=== PATIENT | female | born 1990 | race Caucasian/White ===

== ENCOUNTER 2023-01-12 00:32 | Emergency (ER) | payer BC, OTHER, SELFPAY ==
--- NOTE | ~2023-01-12 | CT_ITS ---
EXAMINATION: CTA chest PE abdomen pel DATE: 01/12/2023 02:18 INDICATION: Left-sided pleuritic chest pain and left abdominal pain. TECHNIQUE: Computed tomography (CT) pulmonary angiogram of the chest was performed with 100 mL Omnipa que-350 intravenous contrast. Additional 3D reconstructions utilizing coronal maximum intensity proje ction (MIP) were performed. CT of the abdomen and pelvis was performed with intravenous contrast util izing the same contrast bolus following a short delay. Automated exposure control and iterative recon struction technique were employed. The dose-length product was 1004.32 mGy-cm. COMPARISON: None FINDINGS: Chest: Excellent contrast opacification of the pulmonary arteries. No significant motion artifact yielding d iagnostic quality study which demonstrates no pulmonary embolism. No pneumonia, pulmonary edema, pleu ral effusion or pneumothorax. Heart size is normal. No pericardial effusion. Thoracic aorta is normal in caliber with no dissection. No pathologically enlarged thoracic lymphadenopathy. Small sliding-ty pe hiatal hernia. Bones are unremarkable. Abdomen/pelvis: Cholecystectomy clips the gallbladder fossa. Liver, spleen, pancreas, bilateral adrenal glands and ki dneys are normal. Normal retrocecal appendix. Mild ventral diastases with superimposed very small fat -containing umbilical hernia. No bowel obstruction. Bladder, uterus and right adnexa are unremarkable . Partially collapsed 1.7 cm partially collapsed left corpus luteum cyst with crenelated peripheral r im enhancement. No free intraperitoneal gas or fluid. No pathologically enlarged abdominal or pelvic lymphadenopathy. Vasculature is unremarkable with normal caliber abdominal aorta with no aneurysm or dissection. Mild lumbar spondylosis. IMPRESSION: 1. 1.7 cm partially collapsed left ovarian corpus luteum cyst. 2. No pulmonary embolism or other acute intrathoracic, abdominal or pelvic process. Reviewed, dictated and finalized at location A. TY ADMINISTRATOR IMPRESSION: 1. 1.7 cm partially collapsed left ovarian corpus luteum cyst. 2. No pulmonary embolism or other acute intrathoracic, abdominal or pelvic proc ess.
[2023-01-12 00:55] VITALS: BP 128/78; PULSE 88; RESP 16; TEMP 36.9; O2SAT 98
--- NOTE | 2023-01-12 01:16 | ED.GENADULT ---
HPI - General Adult General Chief complaint: Abdominal Pain Stated complaint: abd pain Time Seen by Provider: 01/12/23 00:43 History of Present Illness HPI narrative: Patient 32-year-old female who presents the emergency department with chief complaint of left-sided chest pain. Patient states that for about 2 weeks has been having pain in her left upper quadrant and left lower chest. The patient states the pain is sharp reports that its been getting worse and reports is worse with inspiration. Patient states that she was seen in an outside hospital that apparently is having technical issues tonight and they were only able to obtain blood work on the patient the patient at that time had a positive D-dimer and they were unable to get imaging test on the patient. The patient was transferred to our facility for CTA of the chest and possible abdomen pelvis CT. Patient denies fever does report that she has had some flulike symptoms as well. Related Data Allergies Allergy/AdvReac Type Severity Reaction Status Date / Time No Known Allergies Allergy Mild Verified 09/11/09 17:23 Review of Systems Review of Systems: A 10 system review of systems was completed on the patient and is negative except for what is stated in the HPI. Nursing and ancillary documentation was reviewed. Exam Narrative: GENERAL: Well-appearing, well-nourished, and in no acute distress. HEAD: Normocephalic, atraumatic. EYES: PERRLA and EOMI. ENT: Nares clear, no rhinorrhea or epistaxis. Mucous membranes moist. NECK: Supple. CHEST: Clear to auscultation. No respiratory distress. HEART: Regular rate and rhythm. No murmur heard. Normal peripheral pulses. ABDOMEN: Soft, nontender, nondistended, normal active bowel sounds. There is tenderness to palpation in the left upper quadrant and left lower chest EXTREMITIES: Normal range of motion. No edema. SKIN: Warm, dry, no rash. NEURO: No focal deficits. Alert and oriented x3. PSYCH: Normal mood and affect. Course Vital Signs Vital signs: Vital Signs Temperature 36.9 C 01/12/23 00:55 Pulse Rate 88 01/12/23 00:55 Respiratory Rate 16 01/12/23 00:55 Blood Pressure 128/78 01/12/23 00:55 Pulse Oximetry 98 01/12/23 00:55 Oxygen Delivery Room Air 01/12/23 00:55 Temperature 36.9 C 01/12/23 00:55 Pulse Rate 88 01/12/23 00:55 Respiratory Rate 16 01/12/23 00:55 Blood Pressure 128/78 01/12/23 00:55 Pulse Oximetry 98 01/12/23 00:55 Oxygen Delivery Room Air 01/12/23 00:55 Medical Decision Making MDM Narrative Medical decision making narrative: Diagnosis includes intra-abdominal infection, ovarian cyst, pulmonary embolism, intra-abdominal infection. Patient was a transfer from [facility] due to a system failure and their inability to perform imaging studies. Patient had a elevated D-dimer at the [facility] Laboratory studies here showed a normal troponin CTA of the chest showed no acute abnormalities CT scan of the abdomen pelvis showed a hemorrhagic left ovarian cyst Vital Signs Vital Signs: Vital Signs Temperature 36.9 C 01/12/23 00:55 Pulse Rate 88 01/12/23 00:55 Respiratory Rate 16 01/12/23 00:55 Blood Pressure 128/78 01/12/23 00:55 Pulse Oximetry 98 01/12/23 00:55 Oxygen Delivery Room Air 01/12/23 00:55 Temperature 36.9 C 01/12/23 00:55 Pulse Rate 88 01/12/23 00:55 Respiratory Rate 16 01/12/23 00:55 Blood Pressure 128/78 01/12/23 00:55 Pulse Oximetry 98 01/12/23 00:55 Oxygen Delivery Room Air 01/12/23 00:55 Lab Data 01/12/23 01:39 Labs: Lab Results 01/12/23 01/12/23 01/12/23 Range/Units 01:12 01:12 01:39 Creatinine 0.70 (0.7-1.2) mg/dL Estim Creat Clear Calc 104 ml/min Estimated GFR > 60 (59 - ) Troponin I < 0.012 (0.000-0.034) ng/mL Influenza A (RT-PCR) Pending Influenza B (RT-PCR) Pending SARS-CoV-2 RNA (RT-PCR) Pending [facility]
[2023-01-12 01:41] LABS: Estimated CRCL calculation 104 ml/min; Estimated Glomerular Filt Rate > 60
[2023-01-12 01:57] LABS: Troponin I < 0.012 ng/mL (0.000-0.034)
[2023-01-12 02:07] LABS: Influenza A QL RT-PCR Negative (Negative); Influenza B QL RT-PCR Negative (Negative); SARS-CoV-2 RNA PCR Negative
[2023-01-12] MEDS: MORPHINE SULFATE (*CRX) 4 MG/ML INJ IV PUSH (03:55)
[2023-01-12 04:36] VITALS: BP 100/72; PULSE 76; RESP 16; O2SAT 98
[2023-01-12] MEDS: ONDANSETRON HCL ODT 4 MG TABLET PO (04:42)
== END 2023-01-12 04:53 | disposition home or self-care (01) ==
PROVIDERS: Emergency Provider Emergency Medicine; PCP Family Medicine
DX: N83.202 Unspecified ovarian cyst, left side (principal); Z20.822 Contact with and (suspected) exposure to COVID-19
CPT/HCPCS: 36415; 71275; 74177; 81025; 84484; 87636; 96374; 99284; A9270; J2270; Q9967

== ENCOUNTER 2023-11-07 14:00 | Emergency (ER) | payer BC, OTHER, SELFPAY ==
[2023-11-07 14:00] VITALS: BP 129/89; PULSE 95; RESP 18; TEMP 37.2; O2SAT 98
[2023-11-07 14:51] LABS: SARS-CoV-2 RNA PCR Negative (Negative)
[2023-11-07 14:53] LABS: Influenza A QL RT-PCR Negative (Negative); Influenza B QL RT-PCR Negative (Negative); RSV RNA, RT-PCR Negative (Negative)
[2023-11-07 15:09] LABS: Strep Group A RT-PCR NOT DETECTED (Negative)
--- NOTE | 2023-11-07 15:23 | ED.UPPEXIN ---
HPI - Extremity Injury (Upper) General Chief Complaint: Upper Respiratory Infection Stated Complaint: body aches, cough, chest congestion Time Seen by Provider: 11/07/23 14:07 Source: patient Mode of arrival: ambulatory Limitations: no limitations History of Present Illness HPI narrative: this is a 32-year-old female who presents cough and congestion with some no fever chills O2 sats 98% cough is nonproductive with some nasal discharge no shortness of breath no audible wheezing. Related Data Home Medications Medication Instructions Recorded Confirmed desogestrel 0.15 mg-ethinyl 1 tablet PO DAILY 11/07/23 11/07/23 estradiol 0.03 mg tablet (Enskyce) venlafaxine 75 mg capsule,extended 75 mg PO DAILY 11/07/23 11/07/23 release 24 hr Allergies Allergy/AdvReac Type Severity Reaction Status Date / Time No Known Allergies Allergy Mild Verified 11/07/23 14:10 Review of Systems Review of Systems: All systems reviewed & are unremarkable except as noted in HPI and below PMFSH Past Medical History Medical History Patient denies medical problems Exam Const: General: healthy appearing Nutritional Appearance: well nourished Orientation/consciousness: patient oriented x3 HENMT: Head: normal to inspection Neck: Neck: normal visual inspection, no lymphadenopathy and no meningeal signs Chest: Chest palpation & inspection: normal inspection of the chest Resp: Auscultation: clear to auscultation bilaterally Cardio: Rate: regular rate Rhythm: regular rhythm Extrem: General: normal to inspection Psych: Mental Status: mental status grossly normal Course Course Emergency Course: strep COVID RSV and influenza negative will send prescription for cough medicine to patient's pharmacy and a note for work. Vital Signs Vital signs: Vital Signs Temperature 37.2 C 11/07/23 14:00 Pulse Rate 95 11/07/23 14:00 Respiratory Rate 18 11/07/23 14:00 Blood Pressure 129/89 11/07/23 14:00 Pulse Oximetry 98 11/07/23 14:00 Oxygen Delivery Room Air 11/07/23 14:00 Temperature 37.2 C 11/07/23 14:00 Pulse Rate 95 11/07/23 14:00 Respiratory Rate 18 11/07/23 14:00 Blood Pressure 129/89 11/07/23 14:00 Pulse Oximetry 98 11/07/23 14:00 Oxygen Delivery Room Air 11/07/23 14:08 MDM - Extremity Injury (Upper) Lab Data Labs: Lab Results 11/07/23 Range/Units 14:12 Influenza A (RT-PCR) Negative (Negative) Influenza B (RT-PCR) Negative (Negative) RSV (RT-PCR) Negative (Negative) SARS-CoV-2 RNA (RT-PCR) Negative (Negative) Group A Strep (PCR) Not detected (Negative) Critical Care Time Critical Care Time Critical Care Time: No Discharge Plan Discharge Clinical Impression: Viral infection Patient Disposition: Home, Self-Care Condition: Stable Instructions: Antibiotic Form, Viral Syndrome (ED) Additional Instructions: Take medicine as prescribed and follow with primary if symptoms persist or worsen. Prescriptions: New benzonatate 100 mg capsule 100 mg PO TID Qty: 20 0RF No Action venlafaxine 75 mg capsule,extended release 24hr 75 mg PO DAILY desogestrel-ethinyl estradiol [Enskyce] 0.15-0.03 mg tablet 1 tablet PO DAILY Follow-up/Referrals: UNKNOWN,DOCTOR [Non-Staff] - Time of Disposition: 15:26
[2023-11-07 15:35] VITALS: PULSE 96; RESP 18; TEMP 37.4; O2SAT 99
== END 2023-11-07 15:35 | disposition home or self-care (01) ==
PROVIDERS: Emergency Provider Emergency Medicine
DX: B34.9 Viral infection, unspecified (principal); Z79.899 Other long term (current) drug therapy; Z20.822 Contact with and (suspected) exposure to COVID-19
CPT/HCPCS: 87637; 87651; 99283

== ENCOUNTER 2023-11-09 10:22 | Emergency (ER) | payer BC, OTHER, SELFPAY ==
[2023-11-09 10:27] VITALS: BP 130/78; PULSE 104; RESP 20; TEMP 36.7; O2SAT 97
[2023-11-09 11:45] VITALS: O2SAT 98
[2023-11-09 11:48] LABS: Strep Group A RT-PCR NOT DETECTED (Negative)
[2023-11-09 11:57] LABS: Influenza A QL RT-PCR Positive (Negative); Influenza B QL RT-PCR Negative (Negative); RSV RNA, RT-PCR Negative (Negative); SARS-CoV-2 RNA PCR Negative (Negative)
--- NOTE | 2023-11-09 12:08 | ED.URI ---
HPI - URI/Sore Throat General Chief Complaint: Upper Respiratory Infection Stated Complaint: sore throat, lost voice Time Seen by Provider: 11/09/23 11:28 Source: patient Mode of arrival: ambulatory Limitations: no limitations History of Present Illness HPI Narrative: This is a 32 year old female that presents to the ER for cold symptoms. Present over the last 2 days. Reports fever, cough, congestion and sore throat. Denies shortness of breath. Related Data Home Medications Medication Instructions Recorded Confirmed desogestrel 0.15 mg-ethinyl 1 tablet PO DAILY 11/07/23 11/07/23 estradiol 0.03 mg tablet (Enskyce) venlafaxine 75 mg capsule,extended 75 mg PO DAILY 11/07/23 11/07/23 release 24 hr Allergies Allergy/AdvReac Type Severity Reaction Status Date / Time No Known Allergies Allergy Mild Verified 11/07/23 14:10 Review of Systems Review of Systems: CONSTITUTIONAL: Reports fever ENT: Report congestion, sore throat RESPIRATORY: Reports cough. Denies dyspnea. All systems reviewed & are unremarkable except as noted in HPI and below PMFSH Past Medical History Medical History (Updated 11/09/23 @ 12:13 by Delicia Edgar PA-C) History of anxiety Social History Social History (Updated 11/09/23 @ 12:11 by Delicia Edgar PA-C) Smoking status: Current every day smoker Tobacco type: e-cigarettes/vaping Exam Narrative: GENERAL: Well-appearing, well-nourished, and in no acute distress. HEAD: Normocephalic, atraumatic. EYES: EOMI. ENT: Nares clear, no rhinorrhea or epistaxis. Mucous membranes moist. Oropharynx without tonsillar hypertrophy exudate or other lesions. Bilateral TMs pearly malik non-bulging NECK: Supple. No adenopathy or masses. CHEST: Clear to auscultation. No respiratory distress. No wheezes rales or rhonchi HEART: Regular rate and rhythm. No murmur heard. Normal peripheral pulses. EXTREMITIES: Normal range of motion. No edema. SKIN: Warm, dry, no rash. NEURO: No focal deficits. Alert and oriented x3. PSYCH: Normal mood and affect Course Course Emergency Course: Patient updated on her workup and agrees with plan of care Vital Signs Vital signs: Vital Signs Temperature 98.1 F 11/09/23 10:27 Pulse Rate 104 H 11/09/23 10:27 Respiratory Rate 20 11/09/23 10:27 Blood Pressure 130/78 11/09/23 10:27 Pulse Oximetry 97 11/09/23 10:27 Oxygen Delivery Room Air 11/09/23 10:27 Temperature 98.1 F 11/09/23 10:27 Pulse Rate 104 H 11/09/23 10:27 Respiratory Rate 20 11/09/23 10:27 Blood Pressure 130/78 11/09/23 10:27 Pulse Oximetry 97 11/09/23 10:27 Oxygen Delivery Room Air 11/09/23 10:27 MDM - URI/Sore Throat MDM Narrative Medical decision making narrative: Patient presents to the emergency department for cold symptoms present over the last 2 days. She is afebrile and nontoxic appearing. Lungs are clear on exam. Oxygen saturation normal on room air. Patient is influenza A positive. Will be treated with Tamiflu. Instructed on further care viral infection. She is to follow up with her primary provider. She was given warnings to return to the ER Differential Diagnosis Differential diagnosis: Likely upper respiratory infection, viral infection, influenza and other (COVID, RSV, strep) Lab Data Attestation: I reviewed the patient's lab results. Labs: Lab Results 11/09/23 Range/Units 11:08 Influenza A (RT-PCR) Positive A (Negative) Influenza B (RT-PCR) Negative (Negative) RSV (RT-PCR) Negative (Negative) SARS-CoV-2 RNA (RT-PCR) Negative (Negative) Group A Strep (PCR) Not detected (Negative) Critical Care Time Critical Care Time Critical Care Time: No Discharge Plan Discharge Clinical Impression: Influenza A Patient Disposition: Home, Self-Care Condition: Stable Instructions: Influenza (ED) Additional Instructions: Return to the emergency department for worsening symptoms, or
[2023-11-09] MEDS: OSELTAMIVIR PHOSPHATE 75 MG CAPSULE PO (12:25)
[2023-11-09] MEDS: ACETAMINOPHEN 500 MG TABLET 1000 MG PO (12:25)
== END 2023-11-09 12:39 | disposition home or self-care (01) ==
PROVIDERS: Emergency Provider Physician Assistant
DX: J10.1 Influenza due to other identified influenza virus with other respiratory manifestations (principal); Z20.822 Contact with and (suspected) exposure to COVID-19; F41.9 Anxiety disorder, unspecified; F17.290 Nicotine dependence, other tobacco product, uncomplicated
CPT/HCPCS: 87637; 87651; 99283; A9270

== ENCOUNTER 2023-12-24 05:29 | Emergency (ER) | payer BC, OTHER, SELFPAY ==
--- NOTE | ~2023-12-24 | XR_ITS ---
Left Shoulder Technique: AP and scapular Y views were obtained. Clinical History: Pain Findings: No fracture or dislocation is seen. Osseous alignment is anatomic. The glenohumeral and acr omioclavicular joint spaces are preserved. Soft tissues are unremarkable. Impression: Unremarkable left shoulder radiographs. Reviewed, dictated and finalized at [facility]. OR DESIGN ENGINEERING SPECIALIST Impression: Unremarkable left shoulder radiographs.
--- NOTE | ~2023-12-24 | XR_ITS ---
Portable chest x-ray Comparison: None Clinical History: Pain Findings: Lungs are clear, without focal consolidation or pleural effusion. Cardiomediastinal silho uette is unremarkable. Bones and soft tissues are unremarkable. Impression: Normal chest. Reviewed, dictated and finalized at location . R MOUNTER Impression: Normal chest.
[2023-12-24 05:45] VITALS: BP 124/99; PULSE 99; RESP 20; TEMP 36.6; O2SAT 98
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
[2023-12-24] MEDS: methocarbamoL 500 MG TABLET 1000 MG PO (06:15)
[2023-12-24] MEDS: ACETAMINOPHEN 500 MG TABLET 1000 MG PO (06:16)
[2023-12-24] MEDS: dexAMETHasone SOD PHOS INJ 10 MG/ML 1 ML VIAL IM (06:17)
[2023-12-24] MEDS: KETOROLAC (*BKC) 60 MG/2 ML VIAL IM (06:18)
[2023-12-24 07:07] VITALS: BP 122/75; PULSE 88; RESP 18; O2SAT 98
== END 2023-12-24 07:07 | disposition home or self-care (01) ==
PROVIDERS: Emergency Provider Emergency Medicine
DX: S46.912A Strain of unspecified muscle, fascia and tendon at shoulder and upper arm level, left arm, initial encounter (principal); M12.512 Traumatic arthropathy, left shoulder; M75.52 Bursitis of left shoulder; F17.290 Nicotine dependence, other tobacco product, uncomplicated; Z79.899 Other long term (current) drug therapy; Y04.8XXA Assault by other bodily force, initial encounter; Y92.129 Unspecified place in nursing home as the place of occurrence of the external cause; Y99.0 Civilian activity done for income or pay
CPT/HCPCS: 71045; 73030; 96372; 99284; A4565; A9270; J1100; J1885